=== PATIENT | male | born 1950 | race Caucasian/White ===

== ENCOUNTER → 2016-08-23 | Outpatient (CLI) | payer OTHER, MEDICARE ==
[~2016-08-23] MED LIST: IOPAMIDOL (ISOVUE-300) 100 ML BTL ONE
[2016-08-23 13:38] LABS: GLOMERULAR FILTRATION RATE > 60
== END ==
LOC: FIMAGING 12:51
PROVIDERS: ATTEND Nurse Practitioner Adult Health
DX: K57.32 Diverticulitis of large intestine without perforation or abscess without bleeding (principal); M51.36 Other intervertebral disc degeneration, lumbar region
CPT/HCPCS: 74177; Q9967